=== PATIENT | male | born 1935 | race Caucasian/White ===

== ENCOUNTER 2017-07-01 16:29 | Inpatient (IN) | payer OTHER ==
[~2017-07-01] VITALS: Ht 175.3 cm; Wt 78.0 kg
[2017-07-01 16:30] VITALS: BP_SYST 189
[2017-07-01] MEDS ORDERED: hydrALAZINE HCL 20 MG/ML VIAL IVP ONE (17:30)
[2017-07-01 17:44] LABS: BASOPHILS % (AUTO) 0.3 % (0.0-2.0); EOSINOPHILS # (AUTO) 0.1 K/uL (0.0-0.4); EOSINOPHILS % (AUTO) 0.7 % (0.0-4.0); HEMATOCRIT 43.6 % (36-54); HEMOGLOBIN 14.1 g/dL (14.0-18.0); LYMPHOCYTES # (AUTO) 1.4 K/uL (1.0-5.5); LYMPHOCYTES % (AUTO) 14.7 % (20.5-51.5); MEAN CORPUSCULAR HEMOGLOBIN 29 pg (27-31); MEAN CORPUSCULAR HGB CONC 32 % (32-36); MEAN CORPUSCULAR VOLUME 90 fL (79.0-98.0); MONOCYTES # (AUTO) 0.6 K/uL (0.0-1.0); MONOCYTES % (AUTO) 6.7 % (1.7-9.3); NEUTROPHILS # (AUTO) 7.4 K/uL (1.8-7.7); NEUTROPHILS % (AUTO) 77.6 % (40.0-70.0); PLATELET COUNT (AUTO) 324 K/uL (130-430); RED BLOOD CELL COUNT(AUTO) 4.87 MIL/uL (4.2-6.2); RED CELL DISTRIBUTION WIDTH 14.1 % (9.0-15.0); WHITE BLOOD COUNT (AUTO) 9.5 K/uL (4.8-10.8)
[2017-07-01 17:49] LABS: ANION GAP 9 (5-15); CALCIUM 8.7 mg/dL (8.4-11.0); CHLORIDE 104 mmol/L (98-107); CREATININE 0.74 mg/dL (0.55-1.30); GLUCOSE 122 mg/dL (70-99); POTASSIUM 3.6 mmol/L (3.5-5.1); SODIUM SERUM 137 mmol/L (136-145); UREA NITROGEN, BLOOD 13 mg/dL (8-21)
[2017-07-01 17:51] LABS: PROTHROMBIN TIME 10.9 SECS (9.5-12.5)
[2017-07-01 17:56] LABS: ALANINE AMINOTRANSFERASE 16 U/L (12-78); ALBUMIN 3.5 g/dL (3.4-4.8); ASPARTATE AMINOTRANSFERASE 14 U/L (10-37); TOTAL BILIRUBIN 0.5 mg/dL (0.0-1.0); TOTAL PROTEIN, SERUM 6.9 g/dL (6.4-8.3)
[2017-07-01] MEDS ORDERED: NITROGLYCERIN 1 INCH (GM) OINT. TP ONE (19:45)
[2017-07-01] MEDS ORDERED: ASPIRIN 81 MG TABLET(ECOTRIN) PO ONE (19:45)
[2017-07-01 20:27] VITALS: BP_SYST 175
[2017-07-01] MEDS ORDERED: DILT30TA36 PO (21:06)
[2017-07-01] MEDS ORDERED: CARVEDILOL 12.5 MG TABLET (COREG) PO ONE (23:00)
[2017-07-01] MEDS ORDERED: ACETAMINOPHEN 325 MG TABLET PO PRN (23:00)
[2017-07-01] MEDS ORDERED: ENOXAPARIN SODIUM 40 MG/0.4 ML SYRINGE SUBCUT ONE (23:00)
[2017-07-01] MEDS ORDERED: ZOLPIDEM TARTRATE 5 MG TABLET PO PRN (23:00)
[2017-07-01] MEDS ORDERED: cloNIDine HCL 0.1 MG TABLET PO PRN (23:00)
[2017-07-02 00:47] VITALS: BP_SYST 137
[2017-07-02 05:32] LABS: BILIRUBIN,URINE NEGATIVE (NEGATIVE); BLOOD, URINE NEGATIVE (NEGATIVE); CLARITY/URINE CLEAR (CLEAR); COLOR,URINE YELLOW (YELLOW); GLUCOSE,URINE NEGATIVE (NEGATIVE); KETONES,URINE NEGATIVE (NEGATIVE); LEUKOCYTE ESTERASE ,URINE NEGATIVE (NEGATIVE); NITRITE, URINE NEGATIVE (NEGATIVE); PH,URINE 5.5 (5.0-8.0); PROTEIN URINE NEGATIVE (NEGATIVE); UROBILINOGEN,URINE 0.2 (0.2-1.0)
[2017-07-02 07:00] LABS: FREE T4 (FREE THYROXINE) 0.7 ng/dL (0.6-1.6); THYROID STIMULATING HORMONE 1.72 uIu/mL (0.34-4.82)
[2017-07-02 07:31] VITALS: BP_SYST 169
[2017-07-02] MEDS ORDERED: CARVEDILOL 12.5 MG TABLET (COREG) PO SCH (09:00)
[2017-07-02 12:00] VITALS: BP_SYST 118
[2017-07-02] MEDS ORDERED: COR12.5 PO (12:08)
[2017-07-02] MEDS ORDERED: ASA81 PO (12:08)
[2017-07-02] MEDS ORDERED: ACET325T53 PO (12:08)
[2017-07-02 16:46] VITALS: BP_SYST 130
[2017-07-02 17:09] VITALS: BP_SYST 116
[2017-07-02] MEDS ORDERED: ENOXAPARIN SODIUM 40 MG/0.4 ML SYRINGE SUBCUT SCH (21:00)
[2017-07-03] MEDS ORDERED: ASPIRIN 81 MG TAB.CHEW PO SCH (09:00)
== END 2017-07-02 18:41 | disposition home health service (06) | DRG 282 ==
LOC: SED 16:29 → STU 19:37
PROVIDERS: ADMIT Internal Medicine; ATTEND Internal Medicine
DX: I21.3 ST elevation (STEMI) myocardial infarction of unspecified site (principal); F03.90 Unspecified dementia, unspecified severity, without behavioral disturbance, psychotic disturbance, mood disturbance, and anxiety; I16.0 Hypertensive urgency; I49.9 Cardiac arrhythmia, unspecified; I10 Essential (primary) hypertension; Z79.899 Other long term (current) drug therapy; Z87.891 Personal history of nicotine dependence
CPT/HCPCS: 36415; 71020-TC; 80053; 80061; 81003; 82306; 82607; 83880; 84439; 84443-TC; 84484; 85025; 85610-TC; 85730-TC; 93005; 93306; 96374; 99285; J0360; J1650

== ENCOUNTER 2018-04-04 15:08 | Inpatient (IN) | payer OTHER ==
[~2018-04-04] VITALS: Ht 172.7 cm; Wt 71.7 kg
[~2018-04-04 15:08] MED LIST: ACET325T53 PO; ASA81 PO; COR12.5 PO
[2018-04-04 15:47] VITALS: BP_SYST 167
--- NOTE | 2018-04-04 15:53 | NUR ---
Placed in room 01. Placed on electronic device monitor, blood pressure machine and pulse oximeter. To gown for exam. Side rails up. Report given to Ruddy. Multiple skin tears noted to arms and leg. Wound noted to left heel. Blankets placed under knee and heels floating
--- NOTE | 2018-04-04 15:53 | NUR ---
ER at bedside examining patient.
[2018-04-04] MEDS ORDERED: cefTRIAXone 1 GM IVPB PREMIX 50 ML IV ONE (16:00)
[2018-04-04 16:06] LABS: BASOPHILS % (AUTO) 0.2 % (0.0-2.0); EOSINOPHILS % (AUTO) 0.3 % (0.0-4.0); HEMATOCRIT 30.3 % (36-54); HEMOGLOBIN 9.9 g/dL (14.0-18.0); LYMPHOCYTES # (AUTO) 1.1 K/uL (1.0-5.5); LYMPHOCYTES % (AUTO) 8.8 % (20.5-51.5); MEAN CORPUSCULAR HEMOGLOBIN 30 pg (27-31); MEAN CORPUSCULAR HGB CONC 33 % (32-36); MEAN CORPUSCULAR VOLUME 92 fL (79.0-98.0); MONOCYTES # (AUTO) 0.8 K/uL (0.0-1.0); MONOCYTES % (AUTO) 6.3 % (1.7-9.3); NEUTROPHILS # (AUTO) 10.6 K/uL (1.8-7.7); NEUTROPHILS % (AUTO) 84.4 % (40.0-70.0); PLATELET COUNT (AUTO) 534 K/uL (130-430); RED BLOOD CELL COUNT(AUTO) 3.31 MIL/uL (4.2-6.2); RED CELL DISTRIBUTION WIDTH 13.4 % (9.0-15.0); WHITE BLOOD COUNT (AUTO) 12.5 K/uL (4.8-10.8)
[2018-04-04] MEDS ORDERED: ASPI81TA2 PO (16:12)
[2018-04-04] MEDS ORDERED: FURO-149 PO (16:12)
[2018-04-04] MEDS ORDERED: DONE10TA44 PO (16:12)
[2018-04-04] MEDS ORDERED: AZIT250T PO (16:12)
[2018-04-04] MEDS ORDERED: CARV25TA55 PO (16:12)
--- NOTE | 2018-04-04 16:12 | NUR ---
Medication reconciliation completed with information provided by caregiver. Any prior medication reconciliation on file was reviewed and corrected.
[2018-04-04 16:30] LABS: ANION GAP 5 (5-15); CALCIUM 8.1 mg/dL (8.4-11.0); CHLORIDE 108 mmol/L (98-107); CREATININE 1.08 mg/dL (0.55-1.30); GLUCOSE 309 mg/dL (70-99); POTASSIUM 3.9 mmol/L (3.5-5.1); SODIUM SERUM 143 mmol/L (136-145); UREA NITROGEN, BLOOD 28 mg/dL (8-21)
[2018-04-04 16:40] LABS: ALANINE AMINOTRANSFERASE 30 U/L (12-78); ALBUMIN 2.5 g/dL (3.4-4.8); ASPARTATE AMINOTRANSFERASE 18 U/L (10-37); TOTAL BILIRUBIN 0.3 mg/dL (0.0-1.0)
[2018-04-04 16:57] LABS: PROTHROMBIN TIME 9.9 SECS (9.5-12.5)
[2018-04-04] MEDS ORDERED: ASPIRIN 300 MG/SUPP.RECT SUPP RC ONE (17:00)
[2018-04-04] MEDS ORDERED: ASPIRIN 81 MG TAB.CHEW PO ONE (17:00)
--- NOTE | 2018-04-04 17:45 | NUR ---
Telemetry strip printed, interpreted as SINUS RHYTHM at 60 bpm, and placed on the chart.
[2018-04-04] MEDS ORDERED: D5LR 1,000 ML IV ONE (18:00)
--- NOTE | 2018-04-04 18:30 | NUR ---
Patient will be admitted to care of Dr. Bravo. Admitted to tele unit. Will go to room 135. Belongings list completed. Summary report printed. Report will be given at bedside. Transfer to tele via ACLS protocol. Licensed nurse present. IV present no signs or symptoms of infiltration.
--- NOTE | 2018-04-04 18:43 | NUR ---
ADMISSION NOTE Received patient from ER via gurney. Patient admitted with diagnosis of congestion/weakness. Patient is awake. Patient oriented to hospital room, call light, toileting, pain management and safety-teach back done .Personal belongings checked and Belongings List documented. Call light within reach.
[2018-04-04 18:50] VITALS: BP_SYST 176
--- NOTE | 2018-04-04 19:35 | NUR ---
RN OPENING NOTE Received report from MARY Yung. Patient resting in bed. A&O x 1, garbled speech w/ generalized weakness. Patient opens eyes spontaneously. Patient on RA, Uzbek-speaking, and on bedrest. Bed locked at lowest position, rails up, call onofre within reach. Patient on telemetry monitoring. Standard and fall precautions implemented. Patient to be turned and repositioned Q 2 hrs throughout shift. Peripheral IV noted, Left AC 20 G, saline locked, patent and benign.
[2018-04-04 19:36] VITALS: BP_SYST 176
[2018-04-04] MEDS ORDERED: hydrALAZINE HCL 20 MG/ML VIAL IVP PRN (23:15)
[2018-04-04] MEDS: ASPIRIN 81 MG TAB.CHEW PO SCH (23:15)
--- NOTE | 2018-04-04 23:30 | NUR ---
SANFORD CATHETER INSERTION Sanford Catheter 16 F inserted w/ sterile aseptic technique. Patient tolerated well. Urine output noted. aware.
[2018-04-05] MEDS ORDERED: PIPERACILLIN/TAZOBACTAM 2.25 GM VIAL IV ONE (00:08)
[2018-04-05] MEDS: PIPERACILLIN/TAZO 2.25G/DEX-IS 50 ML IV SCH ×5 (00:20→23:50)
--- NOTE | 2018-04-05 00:28 | NUR ---
RN MYNOR / PAGED Dr. Bravo paged for critical lab value of troponin 0.072. Patient resting in bed, eyes closed. FC noted and draining. No S/S of distress noted.
--- NOTE | 2018-04-05 00:30 | NUR ---
paged paged for Dr Bravo, dialed . s/w Yobani.
[2018-04-05 00:32] VITALS: BP_SYST 148
--- NOTE | 2018-04-05 00:46 | NUR ---
CALLED BACK Dr. Bravo called back. Reported troponin critical value. okayed and informed me no change in orders.
[2018-04-05] MEDS: CARVEDILOL 25 MG TABLET (COREG) PO SCH ×3 (01:14→20:59)
[2018-04-05 01:52] LABS: BILIRUBIN,URINE NEGATIVE (NEGATIVE); CLARITY/URINE CLEAR (CLEAR); COLOR,URINE YELLOW (YELLOW); GLUCOSE,URINE 1+ (NEGATIVE); KETONES,URINE NEGATIVE (NEGATIVE); LEUKOCYTE ESTERASE ,URINE 1+ (NEGATIVE); NITRITE, URINE POSITIVE (NEGATIVE); PROTEIN URINE TRACE (NEGATIVE)
[2018-04-05 01:54] VITALS: BP_SYST 148
[2018-04-05 01:55] LABS: BLOOD, URINE TRACE (NEGATIVE)
--- NOTE | 2018-04-05 02:16 | NUR ---
Consult Called for Ozzie Peterson (Dr. Reyes semiconductor dies loader) Reason for consultation: Elevated Troponin Person who was notified: Cande Ordered by Dr. Bravo
[2018-04-05 02:36] LABS: BACTERIA,URINE FEW /HPF (None Seen)
[2018-04-05 02:37] LABS: FINE GRANULAR CASTS,URINE 0-10 /LPF (None Seen)
--- NOTE | 2018-04-05 04:02 | NUR ---
Called Kathy Speech Therapist to inform of Swallow Evaluation. Left a voicemail at [phone].
--- NOTE | 2018-04-05 04:10 | NUR ---
RN ROUNDING Patient sleeping in bed. FC noted and draining. Patient turned and repositioned Q 2 hrs w/ pillow support for comfort. No S/S of distress noted. Will continue to monitor.
--- NOTE | 2018-04-05 06:45 | NUR ---
RN CLOSING NOTE Patient resting in bed. A&O x 1, garbled speech w/ generalized weakness. Patient opens eyes spontaneously. Patient on RA, Rwandan-speaking, and on bedrest. Bed locked at lowest position, rails up, call onofre within reach. Patient on telemetry monitoring. Standard and fall precautions implemented. Patient turned and repositioned Q 2 hrs throughout shift. Peripheral IV noted, Left AC 20 G, infusing D5 LR @ 100 ml/hr, patent and benign. Addendum: 04/05/18 at 0743 by Osito Meneses RN Report given to MARY Kim.
[2018-04-05 07:26] LABS: BASOPHILS % (AUTO) 0.1 % (0.0-2.0); EOSINOPHILS # (AUTO) 0.1 K/uL (0.0-0.4); EOSINOPHILS % (AUTO) 0.8 % (0.0-4.0); HEMATOCRIT 28.5 % (36-54); HEMOGLOBIN 9.3 g/dL (14.0-18.0); LYMPHOCYTES # (AUTO) 1.3 K/uL (1.0-5.5); LYMPHOCYTES % (AUTO) 10.6 % (20.5-51.5); MEAN CORPUSCULAR HEMOGLOBIN 30 pg (27-31); MEAN CORPUSCULAR HGB CONC 33 % (32-36); MEAN CORPUSCULAR VOLUME 91 fL (79.0-98.0); MONOCYTES # (AUTO) 0.9 K/uL (0.0-1.0); MONOCYTES % (AUTO) 7.1 % (1.7-9.3); NEUTROPHILS % (AUTO) 81.4 % (40.0-70.0); PLATELET COUNT (AUTO) 458 K/uL (130-430); RED BLOOD CELL COUNT(AUTO) 3.14 MIL/uL (4.2-6.2); RED CELL DISTRIBUTION WIDTH 13.4 % (9.0-15.0); WHITE BLOOD COUNT (AUTO) 12.3 K/uL (4.8-10.8)
--- NOTE | 2018-04-05 07:51 | NUR ---
Nutrition Update Austin Scale 14 noted. Pt admitted for ALOC Diet: Pureed diet BMI: 24 kg/m2 RD to follow per nutrition care standards.
[2018-04-05 07:55] LABS: ALANINE AMINOTRANSFERASE 24 U/L (12-78); ALBUMIN 2.3 g/dL (3.4-4.8); ANION GAP 5 (5-15); ASPARTATE AMINOTRANSFERASE 15 U/L (10-37); CALCIUM 8.3 mg/dL (8.4-11.0); CHLORIDE 111 mmol/L (98-107); CHOLESTEROL 150 mg/dL (<200); CREATININE 0.98 mg/dL (0.55-1.30); GLUCOSE 322 mg/dL (70-99); HDL CHOLESTEROL 22 mg/dL (>45); LDL CHOLESTEROL 118 mg/dL (<100); POTASSIUM 3.9 mmol/L (3.5-5.1); SODIUM SERUM 144 mmol/L (136-145); THYROID STIMULATING HORMONE 0.83 uIu/mL (0.34-4.82); TOTAL BILIRUBIN 0.4 mg/dL (0.0-1.0); TRIGLYCERIDES 105 mg/dL (30-150); UREA NITROGEN, BLOOD 21 mg/dL (8-21)
[2018-04-05 08:00] VITALS: BP_SYST 177
--- NOTE | 2018-04-05 08:10 | NUR ---
OPENING NOTE: MORNING REPORT WAS TAKEN FROM MANAGER OF INVESTIGATIONS NURSE. PATIENT IS AWAKE WITH NO SIGNS OF DISTRESS. PATIENT ABLE TO TELL ME HIS NAME. PATIENT KNOWS HE IS IN HOSPITAL BUT NOT WHICH ONE. PATIENT IS NOT COMPLAINING OF SHORTNESS OF BREATH. PATIENT IS ON ROOM AIR. PEDAL PULSES ARE WEAK BUT CAP REFILL LESS THAN 3 SECONDS. ELEVATED LEFT FOOT SO BLISTER IS NOT TOUCHING BED. PATIENT ABLE TO FEEL TOUCH ON FEET. PATIENT BEING FED BREAKFAST BY ACCOUNTS RECEIVABLE COLLECTOR. PATIENT IS SWALLOWING WELL. BED ALARM IS ON AND CALL LIGHT IS IN REACH. SIDE RAILS ARE UP AND BED IS IN LOWEST POSITION. WILL CONTINUE TO MONITOR.
--- NOTE | 2018-04-05 08:41 | NUR ---
NOTE: TALKED TO SON AND DAUGHTER IN LAW. ASKED IF PATIENT WAS ADMITTED TO [facility] W[facility]. FAMILY SAID PATIENT WAS NOT ADMITTED.
[2018-04-05] MEDS ORDERED: FUROSEMIDE 40 MG TABLET PO SCH (09:00)
[2018-04-05] MEDS: ASPIRIN 81 MG TAB.CHEW PO SCH (09:16)
--- NOTE | 2018-04-05 09:20 | NUR ---
NOTE: GAVE PATIENT MORNING MEDICATIONS. CRUSHED AND GAVE WITH APPLESAUCE. PATIENT TOLERATED WELL.
--- NOTE | 2018-04-05 11:30 | NUR ---
NOTE: ASSISTED MAHI WITH PATIENT'S WOUND CARE. ASSESSED PATIENT'S WHOLE BODY. MEASURED WOUNDS. FOLLOWED WOUND CARE ORDERS ORDERED. FOLLOW UP WITH MAHI'S NOTES AND CHART. PATIENT HAS HEEL FLOATERS ON. BED IS LOW AIR LOSS MATTRESS. WILL CONTINUE TO MONITOR.
--- NOTE | 2018-04-05 11:44 | NUR ---
WOUND EVALUATION: Wound Consult received from Dr. Bravo. Thank you, Dr. Bravo, for the consult. Patient received in a Radha Bed with an Isoflex ANAY mattress, awake, alert, confused. Patient is unable to turn in bed independently. Austin Score is a 14. Past Medical History: Dementia, Hypertension. Recent Labs: WBC 12.3, RBC 3.14, hemoglobin 9.3, hematocrit 28.5, platelets 458, chloride 111, glucose 322, BNP 226, albumin 2.3. Intrinsic factors that delay wound healing: Hypoalbuminemia, hyperglycemia. Extrinsic factors that delay wound healing: Decreased mobility. Microbiology: Blood culture results 2 in progress. Urine culture results in progress. Wound Assessment: 1. Right sacral area: Scar tissue, present on admission. 2. Buttocks: Blanchable redness, present on admission. 3. Left buttock: Chronic wound site with residual scab present. Scab tissue is 100% brown. No odor, no drainage. Site measures 2.5 cm x 1.8 cm. Recommend: Cleanse involved areas with mild soap and water. Pat dry. Apply moisture barrier cream to involved areas. Perform site care 4 times a day, and as needed for soiling. 4. Left dorsal foot: Acute on chronic wound, present on admission. Wound bed has 100% brown eschar. No odor, no drainage. Periwound erythematous. Wound measures 2.0 cm x 2.0 cm. Recommend: Cleanse wound with normal saline. Put sure prep onto periwound. Apply hydrogel onto wound bed. Cover with foam dressing. Perform wound care daily, and as needed for dressing soiling or dislodgment. 5. Left lateral heel: Large bulla, possible sDTI, present on admission. Bulla has clear fluid, with dark discoloration on superior aspect, Closed. No odor, no drainage. Eleni-bulla is erythematous. Measures 5.5 cm x 7.0 cm. Recommend: Offload and float heel with Heelift boot. Cut lateral corner off of the to allow heel to float freely. Place foam pad onto/into Heelift boot to prevent external rotation of extremity, so that no pressure will be on the bulla. 6. Left lower extremity: Multiple dry scabs, present on admission. Recommend: No dressings needed. Continue to monitor sites for worsening condition. Contact wound care nurse if sites open or drain. 7. Right mid medial queen: Acute on chronic wound, present on admission. Wound bed has 100% brown eschar. No odor, no drainage. Periwound erythematous. Wound measures 2.7 cm x 0.8 cm. Recommend: Cleanse wound with normal saline. Put sure prep onto periwound. Apply hydrogel onto wound bed. Cover with foam dressing. Perform wound care daily, and as needed for dressing soiling or dislodgment. 8. Left Upper extremity: Multiple areas of dry scabs and ecchymosis, present on admission. 9. Right upper extremity: Multiple areas of scar tissue and ecchymosis, present on admission. Recommend: No dressings needed. Continue to monitor sites for worsening condition. Contact wound care nurse if sites open or drain. Also recommend: Reposition patient side to side only every 2 hours with pillow support, and off-load pressure areas with pillows for pressure re-distribution. Offload, elevate and float bilateral heels with Heelift boots. Perform skin care and monitor skin integrity Q shift. Use moisture barrier cream on buttocks and other moisture susceptible areas QID and as needed for soiling. Initiate low air-loss therapy.
[2018-04-05 12:00] VITALS: BP_SYST 121
--- NOTE | 2018-04-05 14:05 | NUR ---
NOTE: PATIENT WAS COMFORTABLY ASLEEP WITH NO SIGNS OF DISTRESS. FLUIDS ARE INFUSING. CHECKED HEELS AND REPOSITIONED NEEDED. WILL CONTINUE TO MONITOR.
[2018-04-05 16:00] VITALS: BP_SYST 156
--- NOTE | 2018-04-05 16:08 | NUR ---
NOTE: PATIENT IS UP WITH GRANDDAUGHTER AT BEDSIDE. GAVE PATIENT SOME APPLE SAUCE TO SNACK ON. GRAND DAUGHTER IS FEEDING HIM. CHECKED HEEL FLOATERS TO MAKE SURE THEY ARE POSITIONED CORRECTLY. WILL CONTINUE TO MONITOR.
--- NOTE | 2018-04-05 17:01 | NUR ---
Dietitian Recommendations *Recommend [facility] Pureed diet w/ Boost Glucose Control TID. Oral Supplement will provide: 750 kcal and 42 gm protein daily. Please see Nutritional Assessment for details. VIMAL, RD
--- NOTE | 2018-04-05 17:01 | NUR ---
SWALLOW EVAL: CALLED RICHARD TO FOLLOW UP ON SWALLOW EVAL. SAID SHE WAS ON HER WAY.
[2018-04-05] MEDS ORDERED: DEXTROSE 50% JECT 50 ML DISP.SYRIN IVP PRN (17:30)
[2018-04-05] MEDS ORDERED: 0.45% NS 500 ML IV ONE (17:30)
--- NOTE | 2018-04-05 18:11 | NUR ---
S.T. SWALLOW EVAL COMPLETED. PT PRESENTS W/ MOD OROPHARYNGEAL DYSPHAGIA W/ DELAYED BOLUS TRANSFER AND DELAYED SWALLOW. FAMILY REPORTS OF COUGHING ON THIN LIQUIDS. PT ALSO SHOWS OCCASIONAL COUGHING WITH OR WITHOUT P.O. ASPIRATION RISK PRESENT. REC: PUREE DIET W/ NECTAR THICK LIQUIDS. VIDEO SWALLOW STUDY ON SUNDAY. DR. DIALLO NOTIFIED AND HE WILL ORDER. NURSE MELLISA NOTIFIED. G8996 CK G8997 CK G8998 CK NOMS LEVEL 4
--- NOTE | 2018-04-05 18:30 | NUR ---
CLOSING NOTE: PATIENT IS AWAKE WITH NO SIGNS OF DISTRESS. GAVE PATIENT FLUIDS AND ANTIBIOTICS. IV IS PATENT WITH NO SIGNS OF INFILTRATION. PATIENT IS ON ROOM AIR. WILL ENDORSE TO POTATO SORTER NURSE THAT PATIENT HAS VIDEO SWALLOW EVAL FOR SUNDAY AND TO PASS ON. SANFORD IS HANGING TO GRAVITY. PATIENT HAS NOT TRIED TO GET OUT OF BED THROUGH OUT SHIFT. HEEL FLOATERS ARE ON AND IN POSITION THAT DOESN'T TOUCH HEEL. BED ALARM IS ON AND CALL LIGHT IS IN REACH. SIDE RAILS ARE UP AND BED IS IN LOWEST POSITION. WILL CONTINUE TO MONITOR.
--- NOTE | 2018-04-05 19:05 | NUR ---
Initial Note: Received handoff report from day shift nurse. Patient is in bed awake, alert, oriented x1. Patient is on room air, shows no signs or symptoms of acute distress, does not complain of any pain. IV 20 gauge on left antecubital is patent and intact. Howard catheter is patent and intact, draining clear yellow urine. Heel lift boots properly applied. Bed is in lowest position with wheels locked, bed alarm is on, upper bed rails raised. Call light is within patient's reach, encouraged patient to use call light for any needs. Notified by day shift nurse that patient has video swallow eval on Thursday 04/05. Explained plan of care to patient, will continue with plan of care.
[2018-04-05] MEDS: DONEPEZIL HCL 5 MG TABLET (ARICEPT) PO SCH (20:58)
[2018-04-05] MEDS: ENOXAPARIN SODIUM 30 MG/0.3 ML SYRINGE SUBCUT SCH (21:04)
--- NOTE | 2018-04-05 21:05 | NUR ---
Rounds: Patient is awake in bed, denies any pain, shows no signs or symptoms of acute distress. Bed is locked in lowest position, bed alarm on, both upper side rails raised. Call light is within patient's reach, will continue to monitor.
[2018-04-05] MEDS: INSULIN REGULAR, HUMAN 100 UNITS/ML, 10 ML VIAL (novoLIN R) SUBCUT PRN (21:14)
[2018-04-05 21:40] VITALS: BP_SYST 133
--- NOTE | 2018-04-05 23:05 | NUR ---
Rounds: Patient is sleeping in bed, no signs or symptoms of acute distress noted. Bed is locked in lowest position, both upper side rails raised, bed alarm on. Call light is within patient's reach. Will continue to monitor.
--- NOTE | 2018-04-06 01:05 | NUR ---
Rounds: Patient is asleep in bed showing no signs or symptoms of acute distress. Bed is in lowest position, wheels locked, both upper side rails raised, bed alarm on. Call light is within patient's reach. Will continue to monitor.
--- NOTE | 2018-04-06 03:05 | NUR ---
Rounds: Patient is in bed sleeping, no signs or symptoms of acute distress. Bed is locked in lowest position, bed alarm on, upper side rails x2 raised. Call light is within patient's reach, will continue to monitor.
--- NOTE | 2018-04-06 05:05 | NUR ---
Rounds: Patient is sleeping in bed showing no signs or symptoms of acute distress. Bed is locked in lowest position, bed alarm on, x2 upper side rails raised. Call light within patient's reach, will continue to monitor.
[2018-04-06] MEDS: PIPERACILLIN/TAZO 2.25G/DEX-IS 50 ML IV SCH ×4 (05:48→23:45)
--- NOTE | 2018-04-06 06:50 | NUR ---
Closing note: Patient is asleep in bed, shows no signs or symptoms of acute distress. IV site patient and intact. Patient remains on room air, byers catheter draining clear yellow urine. Bed is locked in lowest position, bed alarm on, side rails x2 raised. Heel lift boots in place. All needs met and attended to, will endorse care to day shift nurse.
--- NOTE | 2018-04-06 07:25 | NUR ---
Initial Note Received report from the night nurse Mitch. Pt AOX1-2. No sign of distress noted at this time. Bed is at lowest position with bed alarm on. Call light within reach.
[2018-04-06 07:35] VITALS: BP_SYST 171
[2018-04-06] MEDS: ASPIRIN 81 MG TAB.CHEW PO SCH (08:55)
[2018-04-06] MEDS: CARVEDILOL 25 MG TABLET (COREG) PO SCH ×2 (08:56→20:44)
[2018-04-06] MEDS: INSULIN REGULAR, HUMAN 100 UNITS/ML, 10 ML VIAL (novoLIN R) SUBCUT PRN ×3 (11:22→20:48)
[2018-04-06 11:25] VITALS: BP_SYST 137
--- NOTE | 2018-04-06 11:25 | NUR ---
RN Rounds Pt awake and does not complain of any pain or discomfort. Bed is at lowest position with bed alarm on. Call light within reach.
[2018-04-06 15:25] VITALS: BP_SYST 150
--- NOTE | 2018-04-06 15:25 | NUR ---
RN Rounds Pt resting and does not show any sign of distress at this time. Bed is at lowest position with bed alarm on. Call light within reach.
--- NOTE | 2018-04-06 18:04 | NUR ---
Closing Note Pt AOX1-2. No sign of distress noted at this time. Bed is at lowest position with bed alarm on. Call light within reach. Pt has been down graded to medsurg.
[2018-04-06] MEDS ORDERED: QUEtiapine FUMARATE 100 MG TABLET PO SCH (18:15)
--- NOTE | 2018-04-06 19:08 | NUR ---
Opening note Received patient awake, alert, and oriented x2. No s/s of respiratory distress. IV noted and intact. Plan of care reviewed and patient reoriented to call light. Bed is down, locked, side rails up x2, call light within reach. Patient educated on purpose and benefits of bed alarm, bed alarm on. Will continue to monitor.
[2018-04-06 20:00] VITALS: BP_SYST 151; BP_SYST 161
[2018-04-06] MEDS: ENOXAPARIN SODIUM 30 MG/0.3 ML SYRINGE SUBCUT SCH (20:43)
[2018-04-06] MEDS: DONEPEZIL HCL 5 MG TABLET (ARICEPT) PO SCH (20:43)
--- NOTE | 2018-04-06 21:22 | NUR ---
Rounds Patient is awake and resting in bed. No s/s of respiratory distress at this time. Bed is down, locked, side rails up x2, call light within reach. Bed alarm on. Will continue to monitor.
--- NOTE | 2018-04-06 23:07 | NUR ---
Opening note Received patient awake, alert, and oriented x2. No s/s of respiratory distress. IV noted and intact. Plan of care reviewed and patient reoriented to call light. Bed is down, locked, side rails up x2, call light within reach. Patient educated on purpose and benefits of bed alarm, bed alarm on. Will continue to monitor. Addendum: 04/06/18 at 2309 by Chloe Tay RN wrong time
--- NOTE | 2018-04-06 23:07 | NUR ---
Rounds Patient is resting in bed at this time. No s/s of distress noted. Bed is down, locked, side rails up x2, call light within reach. Bed alarm on. Will continue to monitor.
--- NOTE | 2018-04-07 | NUR ---
Wound care performed Left dorsal foot and right mid medial queen: Cleansed wound with normal saline. Pat dry. Put sure prep on periwound. Applied hydrogel onto wound bed. Covered with foam dressing. Right sacral area, buttocks, and left buttock: Cleansed involved areas with mild soap and water. Pat dry. Applied moisture barrier cream to involved areas. Performed site care once and will perform again once more before end of shift. Patient tolerated well. Bed is down, locked, side rails up x3, call light within reach. Bed alarm on. Will continue to monitor. Addendum: 04/08/18 at 0000 by Chloe Tay RN correction
--- NOTE | 2018-04-07 00:30 | NUR ---
Wound care Left dorsal foot and right mid medial queen: Cleansed wound with normal saline. Put sure prep on periwound. Applied hydrogel onto wound bed. Covered with foam dressing. Right sacral area, buttocks, and left buttock: Cleansed involved areas with mild soap and water. Pat dry. Applied moisture barrier cream to involved areas. Performed site care twice during shift. Patient tolerated well. Bed is down, locked, side rails up x2, call light within reach. Will continue to monitor.
[2018-04-07 00:47] VITALS: BP_SYST 142
--- NOTE | 2018-04-07 01:27 | NUR ---
Rounds Patient is resting in bed with eyes closed. No s/s of distress. Bed is down, locked, side rails up x2, call light within reach. Bed alarm on. Will continue to monitor.
--- NOTE | 2018-04-07 03:39 | NUR ---
Rounds Patient is resting in quietly in bed. No s/s of distress noted. Bed is down, locked, side rails up x2, call light within reach. Bed alarm on. Will continue to monitor.
[2018-04-07] MEDS: PIPERACILLIN/TAZO 2.25G/DEX-IS 50 ML IV SCH ×4 (05:00→23:15)
--- NOTE | 2018-04-07 05:22 | NUR ---
Rounds Patient is resting in in bed at this time. No s/s of respiratory distress. Breathing is even and unlabored. Bed is down, locked, side rails up x2, call light within reach. Bed alarm on. Will continue to monitor.
--- NOTE | 2018-04-07 06:36 | NUR ---
Closing note Patient is resting in bed at this time. No s/s of respiratory distress noted. Breathing is even and unlabored. IV is intact. All needs met and anticipated by noc shift nurses. Bed is down, locked, side rails up x2, call light within reach. Bed alarm on. Will endorse to day shift nurse.
[2018-04-07 07:14] LABS: BASOPHILS # (AUTO) 0.1 K/uL (0.0-0.2); BASOPHILS % (AUTO) 0.5 % (0.0-2.0); EOSINOPHILS # (AUTO) 0.1 K/uL (0.0-0.4); EOSINOPHILS % (AUTO) 1.2 % (0.0-4.0); LYMPHOCYTES # (AUTO) 1.3 K/uL (1.0-5.5); LYMPHOCYTES % (AUTO) 12.2 % (20.5-51.5); MEAN CORPUSCULAR HEMOGLOBIN 30 pg (27-31); MEAN CORPUSCULAR HGB CONC 33 % (32-36); MEAN CORPUSCULAR VOLUME 90 fL (79.0-98.0); MONOCYTES # (AUTO) 0.8 K/uL (0.0-1.0); MONOCYTES % (AUTO) 6.9 % (1.7-9.3); NEUTROPHILS # (AUTO) 8.6 K/uL (1.8-7.7); NEUTROPHILS % (AUTO) 79.2 % (40.0-70.0); PLATELET COUNT (AUTO) 451 K/uL (130-430); RED BLOOD CELL COUNT(AUTO) 3.02 MIL/uL (4.2-6.2); RED CELL DISTRIBUTION WIDTH 13.8 % (9.0-15.0); WHITE BLOOD COUNT (AUTO) 10.9 K/uL (4.8-10.8)
--- NOTE | 2018-04-07 07:24 | NUR ---
OPENING NOTE RECEIVED REPORT FROM DAY SHIFT NURSE. PT IS SLEEPING IN BED. PT IS ON RA, NO SOB NOTED. IV IS SALINE LOCK. SAFETY MEASURES BED IS TO LOWEST POSITION, BED ALARM IS ON, SIDE RIALS UPX3, CALL LIGHT WITHIN REACH. WILL CONTINUE TO MONITOR.
[2018-04-07 07:41] LABS: ALANINE AMINOTRANSFERASE 23 U/L (12-78); ANION GAP 3 (5-15); ASPARTATE AMINOTRANSFERASE 15 U/L (10-37); CALCIUM 7.9 mg/dL (8.4-11.0); CHLORIDE 109 mmol/L (98-107); CREATININE 0.98 mg/dL (0.55-1.30); GLUCOSE 185 mg/dL (70-99); POTASSIUM 3.8 mmol/L (3.5-5.1); SODIUM SERUM 140 mmol/L (136-145); TOTAL BILIRUBIN 0.5 mg/dL (0.0-1.0); UREA NITROGEN, BLOOD 21 mg/dL (8-21)
[2018-04-07 08:31] VITALS: BP_SYST 162
[2018-04-07] MEDS: ASPIRIN 81 MG TAB.CHEW PO SCH (08:33)
[2018-04-07] MEDS: CARVEDILOL 25 MG TABLET (COREG) PO SCH ×2 (08:33→20:09)
--- NOTE | 2018-04-07 08:35 | NUR ---
ROUNDS PT HAD BM. PT WAS CLEANED WITH PORCELAIN TURNER. PT TOOK ORAL MEDICATIONS. PT IS ON RA TOLERATING WELL. NO SOB NOTED. NO DISTRESS NOTED. PT HAS HEEL PROTECTORS. PT HAS SANFORD CATHETER DRAINING TO GRAVITY. SAFETY MEASURES IN PLACE, BED TO LOWEST POSITION, BED ALARM IS ON, SIDE RAILS ARE UPX3, CALL LIGHT WITHIN REACH. WILL CONTINUE TO MONITOR.
--- NOTE | 2018-04-07 10:40 | NUR ---
ROUNDS PT IS IN BED RESTING. NO SOB NOTED OR DISTRESS NOTED. SAFETY MEASURES IN PLACE, BED TO LOWEST POSITION, BED ALARM IS ON, SIDE RAILS ARE UPX3, CALL LIGHT WITHIN REACH. WILL CONTINUE TO MONITOR.
[2018-04-07 11:27] VITALS: BP_SYST 130
--- NOTE | 2018-04-07 11:45 | NUR ---
DC planning[phone] who [facility] work with for Hosp[facility] eval--exchange said Mildred will call me back- RN
[2018-04-07] MEDS: INSULIN REGULAR, HUMAN 100 UNITS/ML, 10 ML VIAL (novoLIN R) SUBCUT PRN ×3 (11:53→20:14)
--- NOTE | 2018-04-07 11:56 | NUR ---
ROUNDS BS WAS 286, RECEIVED 4 UNITS OF REGULAR INSULIN. PT IN BED RESTING. NO SOB NOTED. NO DISTRESS NOTED. PT HAS HEEL PROTECTORS. SANFORD CATHETER DRAINING TO GRAVITY. SAFETY MEASURES BED IS TO LOWEST POSITION, BED ALARM IS ON, SIDE RIALS UPX3, CALL LIGHT WITHIN REACH. WILL CONTINUE TO MONITOR.
--- NOTE | 2018-04-07 13:50 | NUR ---
DC planning: S/W Mildred at [facility]. They do not contract with Hospice companies-pt will convert to straight Medicare once on hospice. I called pt's daughter Cass at [phone] and spoke with her and her brother Rajiv on phone--They are agreeable for hospice and said to use whichever company we utilize. I offered [facility] and [facility], also offered to let them [employer] and research hospice companies but they said to go ahead and call [facility]. I called Doreen at [facility] at [phone] and she will f/u with office and is aware to reach out to dtr Cass and get hospice eval today if possible. Cass aware pt will need to discharge lawrence once SNF bed is found for hospice. I did explain to Cass that the hospice company will attempt to locate a snf, but Medicare usually doesn't cover cost of room & board at snf and hospice can also be arranged at home, but she will ask about that once she speaks with someone at the hospice company. I also let her know our social workers here would follow up tomorrow. Referral faxed to [facility] fax#[phone]-- LAUREN HERNANDEZ
--- NOTE | 2018-04-07 14:24 | NUR ---
ROUNDS TURNED PT. PT IS RESTING IN BED. NO SOB NOTED. SANFORD CATHETER DRAINING TO GRAVITY. SAFETY MEASURES BED IS TO LOWEST POSITION, BED ALARM IS ON, SIDE RIALS UPX3, CALL LIGHT WITHIN REACH. WILL CONTINUE TO MONITOR.
[2018-04-07 15:24] VITALS: BP_SYST 139
--- NOTE | 2018-04-07 16:06 | NUR ---
ROUNDS TURNED PT. PT WAS SLEEPING. NO SOB NOTED. SANFORD CATHETER DRAINING TO GRAVITY. SAFETY MEASURES BED IS TO LOWEST POSITION, BED ALARM IS ON, SIDE RIALS UPX3, CALL LIGHT WITHIN REACH. WILL CONTINUE TO MONITOR.
--- NOTE | 2018-04-07 18:57 | NUR ---
CLOSING NOTE PT IS RESTING IN BED. NO SOB NOTED. SANFORD CATHETER DRAINING TO GRAVITY. PT HAS HEEL PROTECTORS. IV IS SALINE LOCK. SAFETY MEASURES BED IS TO LOWEST POSITION, BED ALARM IS ON, SIDE RIALS UPX3, CALL LIGHT WITHIN REACH. WILL ENDORSE TO SILK WINDING MACHINE OPERATOR NURSE.
--- NOTE | 2018-04-07 19:45 | NUR ---
Opening note Received patient awake, alert, and oriented x2. Patient denies pain and nausea at this time. No s/s of distress noted. Breathing is even and unlabored. IV noted to the left AC g20. Byers is intact and draining yellow urine by gravity, no kinks noted. Plan of care reviewed and patient reoriented to call light. Bed is down, locked, side rails up x3, call light within reach. Bed alarm on. Will continue to monitor. Addendum: 04/07/18 at 2331 by Chloe Tay RN Byers securement device found dirty. New byers securement device placed.
[2018-04-07 20:02] VITALS: BP_SYST 135
[2018-04-07] MEDS: ENOXAPARIN SODIUM 30 MG/0.3 ML SYRINGE SUBCUT SCH (20:09)
[2018-04-07] MEDS: DONEPEZIL HCL 5 MG TABLET (ARICEPT) PO SCH (20:09)
--- NOTE | 2018-04-07 21:00 | NUR ---
New IV placed R wrist g20 IV was found dislodged. Catheter intact. No active bleeding noted. New IV placed to right wrist g 20 by Issac HERNANDEZ. IV secured with tape and saline locked, Patient tolerated well. Bed is down, locked, side rails up x3, call light within reach. Bed alarm on. Will continue to monitor.
--- NOTE | 2018-04-07 23:30 | NUR ---
Rounds Patient is resting in bed with eyes closed. No s/s of distress noted at this time. Bed is down, locked, side rails up x3, call light within reach. Bed alarm on. Will continue to monitor.
--- NOTE | 2018-04-08 | NUR ---
Wound care performed Left dorsal foot and right mid medial queen: Cleansed wound with normal saline. Pat dry. Put sure prep on periwound. Applied hydrogel onto wound bed. Covered with foam dressing. Right sacral area, buttocks, and left buttock: Cleansed involved areas with mild soap and water. Pat dry. Applied moisture barrier cream to involved areas. Performed site care once and will perform again once more before end of shift. Patient tolerated well. Bed is down, locked, side rails up x3, call light within reach. Bed alarm on. Will continue to monitor.
[2018-04-08 01:16] VITALS: BP_SYST 152
--- NOTE | 2018-04-08 01:27 | NUR ---
Rounds Patient is resting quietly in bed. No s/s of distress. Breathing is even and unlabored. Bed is down, locked, side rails up x3, call light within reach. Bed alarm on. Will continue to monitor.
--- NOTE | 2018-04-08 03:04 | NUR ---
Rounds Patient is resting in bed with eyes closed. No s/s of distress noted. Bed is down, locked, side rails up x3, call light within reach. Bed alarm on. Will continue to monitor.
--- NOTE | 2018-04-08 05:03 | NUR ---
Rounds Patient is resting quietly in bed. No s/s of respiratory distress. Bed is down, locked, side rails up x3, call light within reach. Bed alarm on. Will continue to monitor.
[2018-04-08] MEDS: PIPERACILLIN/TAZO 2.25G/DEX-IS 50 ML IV SCH ×4 (05:11→23:17)
[2018-04-08] MEDS: INSULIN REGULAR, HUMAN 100 UNITS/ML, 10 ML VIAL (novoLIN R) SUBCUT PRN ×4 (06:12→21:34)
--- NOTE | 2018-04-08 06:34 | NUR ---
Closing note Patient is resting in bed with eyes closed at this time. Patient denies pain. No s/s of distress. Breathing is even and unlabored. IV is intact and saline locked. Howard is secure and draining yellow urine by gravity, no kinks noted. All needs met and anticipated by noc shift nurses. Bed is down, locked, side rails up x3, call light within reach. Bed alarm on. Will endorse to day shift nurse.
--- NOTE | 2018-04-08 07:52 | NUR ---
PAGED PAGED MARCO BOONE AT [phone] SPOKE WITH EUN.
[2018-04-08 08:00] VITALS: BP_SYST 170
--- NOTE | 2018-04-08 08:00 | NUR ---
initial notes rec patient awake, opens eyes but non verbally responsive at this time. hob slightly elevated, resp easy and unlabored. no acute distress noted. bed in low position and side rails up and locked. call light within reached and pt close to the nursing station. will continue to monitor patient.
[2018-04-08] MEDS: ASPIRIN 81 MG TAB.CHEW PO SCH (08:16)
[2018-04-08] MEDS: CARVEDILOL 25 MG TABLET (COREG) PO SCH ×2 (08:17→21:12)
[2018-04-08] MEDS ORDERED: BARIUM SULFATE 135 ML SUSP.RECON (E-Z-HD) PO ONE (09:21)
--- NOTE | 2018-04-08 09:30 | NUR ---
rounds was taken via bed for video swallowing test via bed. no acute distress noted.
--- NOTE | 2018-04-08 10:05 | NUR ---
S.T. VIDEO SWALLOW STUDY COMPLETED. PT PRESENTS W/ ML-MOD ORAL AND ML PHARYNGEAL DYSPHAGIA CHARACTERIZED BY DELAYED BOLUS TRANSFER AND DELAYED SWALLOW. NO RESIDUE, PENETRATION, OR ASPIRATION. REC: PUREE DIET. THIN LIQUIDS OK. NURSE JOSEY NOTIFIED. [id number] CJ [id number] CJ [id number] CJ NOMS LEVEL 5
--- NOTE | 2018-04-08 10:20 | NUR ---
Vineyard Tender Note: INTEGRATED PEST MANAGEMENT TECHNICIAN called [facility] ([phone]) and spoke with Palmira to follow up on hospice evaluation that was requested on 04/07/18. Palmira states that she will follow up regarding pt's referral and will call INTEGRATED PEST MANAGEMENT TECHNICIAN back with further updates. INTEGRATED PEST MANAGEMENT TECHNICIAN awaiting call back. Addendum: 04/08/18 at 1033 by Sandra Pride LCSW CODY observed pt at bedside. Pt appeared to resting comfortably with all needs met at this time. There were no visitors at bedside. INTEGRATED PEST MANAGEMENT TECHNICIAN called pt's dtr, Cass ([phone]), and left a voice mail; INTEGRATED PEST MANAGEMENT TECHNICIAN provided Vineyard Tender contact information and requested for pt's dtr to call back. INTEGRATED PEST MANAGEMENT TECHNICIAN awaiting call back. Addendum: 04/08/18 at 1102 by Sandra Pride LCSW INTEGRATED PEST MANAGEMENT TECHNICIAN met with [facility] Double Backer, Doreen, in the [facility]. Doreen states that she spoke with pt's dtr-in-law, Cass, and Cass states that pt's son, Rajiv is the DPOA. Cass has requested that [facility] does not do the evaluation until they have met with Doreen. [facility] provided Doreen with pt's son, Raijv's, contact information ([phone]). Doreen states that she will contact pt's son to discuss hospice evaluation. Cass informed Doreen that pt was at a board and care prior to admission, so Doreen will follow up to see if pt can return to board and care with hospice services upon discharge. Vineyard Tender will continue to follow up. Addendum: 04/08/18 at 1345 by Sandra Pride LCSW Medical Territory Manager, Ana, informed [facility] that pt's family has contacted [facility] and would like to utilize them for pt's care. [facility] called [facility] ([phone]) and spoke with Leigha. February confirmed that they spoke with pt's family regarding hospice care for pt. February requested for [facility] to fax pt's information. [facility] faxed pt's information to [facility] ([phone]). Vineyard Tender will continue to remain available and follow up as needed. Addendum: 04/08/18 at 1725 by Sandra Pride LCSW CODY called [facility] and spoke with Leigha. February states that Double Backer will meet with pt's family at pt's bedside on 04/09/18 between 9:30 and 10:00am.
[2018-04-08 11:29] VITALS: BP_SYST 127
--- NOTE | 2018-04-08 11:31 | NUR ---
D/C Planning: Called [facility] [phone] spoke dany Hu advised to contact [employer] Nicole Roa [phone] house # [phone] advised they are able to accept pt on hospice at [facility] however they utilize [facility]. Called spoke with Cass Metz [phone] advised she she and her have been going through a lot in the last 17 months they have 3 parents and her is facing health issues as well. Advised if she can have contact CM and or SW dept on hospice options. CM await family decision on DCP. CM offered for family to connect with SW to discuss complexity of their grieving and DCP. CM will continue to follow up.
--- NOTE | 2018-04-08 12:30 | NUR ---
rounds no hypo hyperglycemic reaction noted. sleeps at intervals. side rials up and locked. no acute distress noted.
--- NOTE | 2018-04-08 14:00 | NUR ---
rounds sleeps at intervals but arousable to stimuli. no c/o pain when asked. turned repositioned for comfort.
[2018-04-08 15:26] VITALS: BP_SYST 145
--- NOTE | 2018-04-08 16:00 | NUR ---
rounds sleeps at intervals, no sob noted. turned repositioned for comfort.
--- NOTE | 2018-04-08 17:30 | NUR ---
rounds no hypo hyperglycemic reaction noted. pt with goopd appetite when fed. no acute distress noted.
--- NOTE | 2018-04-08 18:23 | NUR ---
closing notes turned repositioned for comfort. no acute ditress noted. no hypo hyperglycemic reaction noted. bed in low position and side rails up and locked.
--- NOTE | 2018-04-08 19:36 | NUR ---
OPENING NOTE Patient resting on the bed. No acute distress. Respiration even and unlabored. Denied of pain at this time. Skin warm and dry to touch. SL intact to right wrist, no redness, no swelling, patent. F/C intact, drain gravity with yellow urine. Safety measure maintained. Bed locked in low position, side rails up, bed alarm on. Call light within reached. Will continue to monitor.
[2018-04-08 20:00] VITALS: BP_SYST 142
--- NOTE | 2018-04-08 20:30 | NUR ---
ENTRY LEVEL PROGRAMMER GIVING BED BATH TO PATIENT
[2018-04-08] MEDS: ENOXAPARIN SODIUM 30 MG/0.3 ML SYRINGE SUBCUT SCH (21:11)
[2018-04-08] MEDS: DONEPEZIL HCL 5 MG TABLET (ARICEPT) PO SCH (21:12)
--- NOTE | 2018-04-08 22:20 | NUR ---
ROUND Patient resting on the bed comfortable. No acute distress. Respiration even and unlabored. Safety measure maintained. Call light within reached. Bed locked in low position, side rails up, bed alarm on. Continue to monitor.
--- NOTE | 2018-04-09 00:45 | NUR ---
ROUND Patient resting on the bed with eyes closed. No acute distress. Respiration even and unlabored. Safety measure maintained. Bed locked in low position, side rails up, bed alarm on. Call light within reached. Continue to monitor.
[2018-04-09 01:04] VITALS: BP_SYST 116
--- NOTE | 2018-04-09 02:41 | NUR ---
ROUND Patient resting on the bed with eyes closed. No acute distress. F/C intact, drain gravity with yellow urine. Safety measure maintained. Call light within reached. Bed locked in low position, side rails up, bed alarm on. Continue to monitor.
--- NOTE | 2018-04-09 04:25 | NUR ---
ROUND Patient resting on the bed with eyes closed. No acute distress. Respiration even and unlabored. Skin warm and dry to touch. F/C intact, drain gravity with yellow urine. Safety measure maintained. Call light within reached. Bed locked in low position, side rails up, bed alarm on. Continue to monitor.
[2018-04-09] MEDS: PIPERACILLIN/TAZO 2.25G/DEX-IS 50 ML IV SCH ×2 (05:27→10:57)
--- NOTE | 2018-04-09 06:56 | NUR ---
CLOSING NOTE Patient resting on the bed. No acute distress. Respiration even and unlabored. Denied of pain at this time. Skin warm and dry to touch. SL intact to right wrist, no redness, no swelling, patent. F/C intact, drain gravity with yellow urine. All needs met. Hourly rounding during shift. Safety measure maintained. Bed locked in low position, side rails up, bed alarm on. Call light within reached. Will endorse to morning shift nurse.
--- NOTE | 2018-04-09 07:30 | NUR ---
Initial Note Received report from the night nurse HAIDER. Pt AOX1-2. No sign of distress noted at this time. Bed is at lowest position with bed alarm on. Call light within reach.
[2018-04-09 07:40] VITALS: BP_SYST 136
--- NOTE | 2018-04-09 09:55 | NUR ---
[facility] commissary representative is meeting with pt's son at this time.
[2018-04-09] MEDS: ASPIRIN 81 MG TAB.CHEW PO SCH (09:57)
[2018-04-09] MEDS: CARVEDILOL 25 MG TABLET (COREG) PO SCH (09:58)
[2018-04-09] MEDS: INSULIN REGULAR, HUMAN 100 UNITS/ML, 10 ML VIAL (novoLIN R) SUBCUT PRN (11:01)
[2018-04-09 11:25] VITALS: BP_SYST 126
--- NOTE | 2018-04-09 11:30 | NUR ---
RN Rounds Pt awake and does not show any sign of distress at this time. Bed is at lowest position with bed alarm on. Call light within reach.
--- NOTE | 2018-04-09 13:14 | NUR ---
Social Service Note: CODY has left 2 messages for Alaina at [facility] ([phone]) to obtain ambulance authorization for pt's transfer back to the [facility]. CODY has asked for the help of CM to get authorization. Addendum: 04/09/18 at 1353 by Elizabeth Harrington LCSW CODY received call from Alaina at [facility]; she has authorized pt to return to [facility] via [facility] (Auth#[id number]); [employer] has set up ambulance with [facility]product pick[facility] at 4:30pm. Addendum: 04/09/18 at 1411 by Elizabeth Harrington LCSW CODY left a message for pt's [facility] ([phone]) CODY attempted to reach [facility] [employer] Teacher[employer] ([phone]), voice mail is full and a message cannot be left. Addendum: 04/09/18 at 1422 by Elizabeth Harrington LCSW CODY also left a message for Barbara, with [facility] ([phone]) to alert her of ambulance product picker time of 4:30pm.
--- NOTE | 2018-04-09 15:15 | NUR ---
PHYSICAL THERAPY CO-SIGN The Physical Therapy Progress Notes documented by Associate Professor Of Kinesiology have been reviewed. I concur with the documentation of this VIRTUAL RECRUITER. Plan: possible DC to prior living arrangement with hospice care to follow up. Reviewed/Co-Signed by: Radha Roman PT Documentation Done by: Audi Villasenor, VIRTUAL RECRUITER Addendum: 04/09/18 at 1521 by Radha Roman PT Amended: Links added.
[2018-04-09 15:25] VITALS: BP_SYST 145
--- NOTE | 2018-04-09 15:35 | NUR ---
RN Rounds Pt resting and does not complain of any pain or discomfort at this time. Bed is at lowest position with bed alarm on. Call light within reach.
--- NOTE | 2018-04-09 15:42 | NUR ---
WOUND RE-EVALUATION: Patient received in a Radha Bed with an Isoflex ANAY mattress, awake, alert, confused. Patient is unable to turn in bed independently. Austin Score is a 14. Intrinsic factors that delay wound healing: Hypoalbuminemia, hyperglycemia. Extrinsic factors that delay wound healing: Decreased mobility. Microbiology: Blood culture and Urine culture results negative. Wound care performed by dayshift nurse. Dressings not removed for assessment secondary to doing so would decrease wound temperature and retard wound healing rate. Wound Assessment: 1. Right sacral area: Scar tissue, present on admission. 2. Buttocks: Blanchable redness, present on admission. 3. Left buttock: Chronic wound site with residual scab present. Recommend continue: Cleanse involved areas with mild soap and water. Pat dry. Apply moisture barrier cream to involved areas. Perform site care 4 times a day, and as needed for soiling. 4. Left dorsal foot: Acute on chronic wound, present on admission. Recommend continue: Cleanse wound with normal saline. Put sure prep onto periwound. Apply hydrogel onto wound bed. Cover with foam dressing. Perform wound care daily, and as needed for dressing soiling or dislodgment. 5. Left lateral heel: Large bulla, possible sDTI, present on admission. Recommend continue: Offload and float heel with Heelift boot. Cut lateral corner off of the to allow heel to float freely. Place foam pad onto/into Heelift boot to prevent external rotation of extremity, so that no pressure will be on the bulla. 6. Left lower extremity: Multiple dry scabs, present on admission. Recommend continue: No dressings needed. Continue to monitor sites for worsening condition. Contact wound care nurse if sites open or drain. 7. Right mid medial queen: Acute on chronic wound, present on admission. Recommend continue: Cleanse wound with normal saline. Put sure prep onto periwound. Apply hydrogel onto wound bed. Cover with foam dressing. Perform wound care daily, and as needed for dressing soiling or dislodgment. 8. Left Upper extremity: Multiple areas of dry scabs and ecchymosis, present on admission. 9. Right upper extremity: Multiple areas of scar tissue and ecchymosis, present on admission. Recommend continue: No dressings needed. Continue to monitor sites for worsening condition. Contact wound care nurse if sites open or drain. Also recommend continue: Reposition patient side to side only every 2 hours with pillow support, and off-load pressure areas with pillows for pressure re-distribution. Offload, elevate and float bilateral heels with Heelift boots. Perform skin care and monitor skin integrity Q shift. Use moisture barrier cream on buttocks and other moisture susceptible areas QID and as needed for soiling. Maintain patient on low air-loss therapy.
[2018-04-09 16:35] VITALS: BP_SYST 145
--- NOTE | 2018-04-09 17:00 | NUR ---
Discharge Note Pt has been discharged to [facility] with hospice as ordered by Dr. Bravo. Pt is in stable condition at the time of discharge. Transitional care documents given to [facility] commercial front load operator of unit 513. Howard catheter was not removed as requested by Barbara from [facility]. IV line removed gauze and pressure applied. No sign of bleeding noted. ID band removed.
== END 2018-04-09 17:05 | disposition hospice, home (50) | DRG 64 ==
LOC: SED 15:08 → STU 17:52 → SMU 04-06 17:25
PROVIDERS: ADMIT Internal Medicine; ATTEND Internal Medicine
DX: I63.9 Cerebral infarction, unspecified (principal); G93.41 Metabolic encephalopathy; E43 Unspecified severe protein-calorie malnutrition; L03.115 Cellulitis of right lower limb; E86.0 Dehydration; G30.9 Alzheimer's disease, unspecified; D64.9 Anemia, unspecified; R64 Cachexia; F02.80 Dementia in other diseases classified elsewhere, unspecified severity, without behavioral disturbance, psychotic disturbance, mood disturbance, and anxiety; E78.5 Hyperlipidemia, unspecified; H91.90 Unspecified hearing loss, unspecified ear; I10 Essential (primary) hypertension; Z96.642 Presence of left artificial hip joint; R62.7 Adult failure to thrive; Z66 Do not resuscitate; Z68.24 Body mass index [BMI] 24.0-24.9, adult; Z87.891 Personal history of nicotine dependence; Z79.82 Long term (current) use of aspirin; Z79.899 Other long term (current) drug therapy
CPT/HCPCS: 36415; 70450-TC; 71045; 74230; 80053; 80061; 81000-TC; 82550-TC; 82962; 83605; 83880; 84439; 84443-TC; 84484; 85025; 85610-TC; 85730-TC; 87040-TC; 87086; 92610-GN; 92611-GN; 93005; 93306; 96365; 97110-GP; 97116-GP; 97530-GP; 99285; J0360; J0696; J1650; J1815; J2543; J7120